=== PATIENT | female | born 1995 | race African-American/Black ===

== ENCOUNTER 2016-12-05 20:56 | Emergency (ER) | payer SELFPAY ==
[~2016-12-05] VITALS: Ht 157.5 cm; Wt 54.0 kg
[2016-12-05 20:58] VITALS: BP 117/67; PULSE 108; RESP 16; TEMP 98.3; O2SAT 100
[2016-12-05 21:02] VITALS: BP 92/62; TEMP 98; O2SAT 100
[2016-12-05 21:47] LABS: BLOOD, URINE NEG (NEG); COMMENT (UR) CULTURE INDICATED; CULTURE IF INDICATED CULTURE INDICATED; GLUCOSE,URINE NEG (NEG); KETONE, URINE 150 mg/dL (NEG); MUCUS URINE FEW /lpf (OCC); NITRITE,URINE NEG (NEG); PH, URINE 6.5 (5.0-8.5); SQUAMOUS EPITHELIAL CELL URINE 3 /hpf (0-5); URINE COLOR YELLOW (YELLW/STRAW)
[2016-12-05] MEDS ORDERED: PHEN0.4T PO (21:58)
[2016-12-05] MEDS ORDERED: CIPR-9 PO (21:58)
--- NOTE | 2016-12-05 22:01 | PD ---
HPI Chief Complaint: Complaint Time Seen by Provider: 21:58 Travel History International Travel<30 days: No Contact w/Intl Traveler<30days: No Traveled to known affect area: No History of Present Illness HPI 21-year-old female that presents to the ED for evaluation of UTI. Per patient she's had dysuria for almost a month. Per patient she went to see an urgent care and they gave her medication and per patient for the past 3 days she's been taking it with minimal relief. Per patient still has the symptoms. She also tells me that she's been taking it wrong. Per patient she discussed this with the nurse before I went to see her and apparently she was taking the medication 2 pills in the morning instead of once in the morning once a night. Patient denies any hematuria. Patient denies any vaginal discharge or bleeding. No . No chest or shortness of breath. No back pain. No fevers chills or sweats. PFSH Past Medical History Medical other: Yes (UTI, STD) Immunizations Current: Yes ?: Not LMP: 11/12/16 : 0 Past Surgical History Surgical History: No Previous Surgery Social History Alcohol Use: No Tobacco Use: No Substance Use: Yes (MARIJUANA) Allergies-Medications (Allergen,Severity, Reaction): Coded Allergies: No Known Allergies (Unverified , 12/05/16) Review of Systems Except as stated in HPI: all other systems reviewed are Neg Physical Exam Narrative GENERAL: SKIN: Warm and dry. HEAD: Atraumatic. Normocephalic. EYES: Pupils equal and round. No scleral icterus. No injection or drainage. ENT: No nasal bleeding or discharge. Mucous membranes pink and moist. NECK: Trachea midline. No JVD. CARDIOVASCULAR: Regular rate and rhythm. RESPIRATORY: No accessory muscle use. Clear to auscultation. Breath sounds equal bilaterally. GASTROINTESTINAL: Abdomen soft, non-tender, nondistended. Hepatic and splenic margins not palpable. MUSCULOSKELETAL: Extremities without clubbing, cyanosis, or edema. No obvious deformities. No CVA tenderness. NEUROLOGICAL: Awake and alert. No obvious cranial nerve deficits. Motor grossly within normal limits. Five out of 5 muscle strength in the arms and legs. Normal speech. PSYCHIATRIC: Appropriate mood and affect; insight and judgment normal. Data Data Last Documented VS Vital Signs Date Time Temp Pulse Resp B/P Pulse Ox O2 Delivery O2 Flow Rate FiO2 1/12/17 21:17 108 16 12/05/16 21:02 98.0 92/62 100 Room Air Orders Urinalysis - C+S If Indicated (12/05/16 21:06) Ed Urine Pregnancytest Poc (12/05/16 21:06) Urine Culture (12/05/16 21:30) Labs Laboratory Tests Test 12/05/16 21:30 Urine Color YELLOW Urine Turbidity CLEAR Urine pH 6.5 Urine Specific Tarrs 1.035 Urine Protein 30 mg/dL Urine Glucose (UA) NEG mg/dL Urine Ketones 150 mg/dL Urine Occult Blood NEG Urine Nitrite NEG Urine Bilirubin NEG Urine Urobilinogen LESS THAN 2.0 MG/DL Urine Leukocyte Esterase MOD Urine RBC 3 /hpf Urine WBC 19 /hpf Urine Squamous Epithelial 3 /hpf Cells Urine Mucus FEW /lpf Microscopic Urinalysis Comment CULTURE INDICATED MDM Medical Decision Making Medical Screen Exam Complete: Yes Emergency Medical Condition: Yes Medical Record Reviewed: Yes Interpretation(s) UA showed the process trace, bacteria and white blood cells Differential Diagnosis Cystitis versus UTI versus pyelonephritis Narrative Course 21-year-old female that presents to the ED for evaluation of possible UTI. Patient was properly examined and was found to have signs and symptoms consistent with UTI. Urine was done and did show the process reason signs of infection. Unclear this is stable for outpatient treatment versus patient not been able to take the medication as prescribed. At this time I will change the medication to Cipro and give her a prescription for Pyridium to help with her symptoms. I recommend that she follows up closely with PCP. Drink plenty of fluids. See ED worsening symptoms. Of note I was told by ED nurse that patient Mayra he mentioned that she was feeling depressed for about a year. She denies any homicidal or suicidal ideation to me. I asked her specifically if she wanted us to have her evaluated by psychiatry for evaluation and she declines at this time. At this time she is capable of making her in decisions and abdomen it that she meets any Tran acted.. She understands that she can come back any time. Diagnosis Primary Impression: Cystitis Patient Instructions: General Instructions Additional Instructions: Take medication as prescribed. Follow-up with PCP. See ED worsening symptoms. Med/Other Pt SpecificInfo: Prescription(s) given Scripts Phenazopyridine (Pyridium)100 Mg [id number] Mg PO Q8H PRN (DYSURIA) #20 TAB Ref 0 Prov:Dennis Ashraf MD 12/05/16 Ciprofloxacin (Cipro)500 Mg [id number] Mg PO BID 7 Days Prov:Dennis Ashraf MD 12/05/16 Disposition: 01 DISCHARGE HOME Condition: Stable Luan Monte Dec 05, 2016 22:01
== END 2016-12-05 22:31 | disposition home or self-care (01) ==
LOC: NEPE 20:56
DX: N30.90 Cystitis, unspecified without hematuria (principal); F12.10 Cannabis abuse, uncomplicated
CPT/HCPCS: 81001; 84703; 87086; 99283